=== PATIENT | female | born 1955 | race Hispanic/Latino ===

== ENCOUNTER 2021-12-01 10:23 | Outpatient (CLI) | payer MEDICARE, MEDICAID | END 2021-12-01 10:24 | disposition home or self-care (01) | LOC: CSHMAMMO 10:23 | PROVIDERS: ATTEND Family Medicine | DX: Z12.31 Encounter for screening mammogram for malignant neoplasm of breast (principal); Z80.3 Family history of malignant neoplasm of breast | CPT/HCPCS: 77063; 77067 ==

== ENCOUNTER 2022-03-06 10:24 | Outpatient (CLI) | payer OTHER, MEDICAID | END 2022-03-06 10:25 | disposition home or self-care (01) | LOC: CSHMAMMO 10:24 | PROVIDERS: ATTEND Family Medicine | DX: Z13.820 Encounter for screening for osteoporosis (principal); Z78.0 Asymptomatic menopausal state; Z98.890 Other specified postprocedural states | CPT/HCPCS: 77080 ==

== ENCOUNTER 2023-04-06 08:53 | Outpatient (CLI) | payer OTHER, MEDICAID | END 2023-04-06 08:54 | disposition home or self-care (01) | LOC: CSHMAMMO 08:53 | PROVIDERS: ATTEND Family Medicine | DX: N63.41 Unspecified lump in right breast, subareolar (principal) | CPT/HCPCS: 76642; 77066; G0279 ==

== ENCOUNTER 2024-04-19 16:00 | Outpatient (CLI) | payer OTHER, MEDICAID | END 2024-04-19 16:01 | disposition home or self-care (01) | LOC: CSHSLEEP 16:00 | PROVIDERS: ATTEND Family Medicine | DX: G47.33 Obstructive sleep apnea (adult) (pediatric) (principal); R53.83 Other fatigue; R09.89 Other specified symptoms and signs involving the circulatory and respiratory systems; E11.9 Type 2 diabetes mellitus without complications; K21.9 Gastro-esophageal reflux disease without esophagitis; E66.9 Obesity, unspecified; Z68.42 Body mass index [BMI] 45.0-49.9, adult; R06.83 Snoring; I10 Essential (primary) hypertension | CPT/HCPCS: 95800 ==

== ENCOUNTER 2025-06-14 12:38 | Outpatient (CLI) | payer OTHER, MEDICAID | END 2025-06-14 12:39 | disposition home or self-care (01) | LOC: CSHMAMMO 12:38 | PROVIDERS: ATTEND Family Medicine | DX: Z12.31 Encounter for screening mammogram for malignant neoplasm of breast (principal); Z80.3 Family history of malignant neoplasm of breast; Z91.89 Other specified personal risk factors, not elsewhere classified | CPT/HCPCS: 77063; 77067 ==